=== PATIENT | male | born 1980 | race Caucasian/White ===

== ENCOUNTER → 2020-09-05 | Outpatient (CLI) | payer OTHER ==
[~2020-09-05] MED LIST: DOSS PO; PERCOCET 7.5-31 EACH PO; ZOFRAN4 MG PO
== END ==
LOC: SLEEP 14:52
DX: G47.19 Other hypersomnia (principal); R06.83 Snoring; G47.10 Hypersomnia, unspecified
CPT/HCPCS: 95810